=== PATIENT | female | born 1970 | race Caucasian/White ===

== ENCOUNTER 2016-12-28 17:13 | Inpatient (IN) | payer OTHER ==
[~2016-12-28] VITALS: Ht 170.2 cm; Wt 63.5 kg
[2016-12-28 17:36] VITALS: BP 127/87
[2016-12-28] MEDS ORDERED: Morphine Sulfate 4mg/ml Inj IVP ONE (17:45)
[2016-12-28] MEDS ORDERED: Morphine Sulfate 4mg/ml Inj IVP PRN (18:00)
[2016-12-28] MEDS ORDERED: Milk of Magnesia 30ml Ud ORAL PRN (18:00)
[2016-12-28] MEDS ORDERED: Zolpidem 5mg tab ORAL PRN (18:15)
[2016-12-28] MEDS ORDERED: DiphenhydrAMINE 50mg/ml Inj IVP PRN (18:15)
[2016-12-28 18:24] LABS: BASOPHILS % (AUTO) 1.2 % (0.0-2.0); EOSINOPHILS % (AUTO) 2.3 % (0.0-3.0); MEAN CORPUSCULAR HEMOGLOBIN 29.3 PG (27.0-31.0); MEAN CORPUSCULAR HGB CONC 31.8 G/DL (32.0-36.0); MEAN CORPUSCULAR VOLUME 92 FL (80-99); MEAN PLATELET VOLUME 7.1 FL (6.5-10.1); MONOCYTES % (AUTO) 6.7 % (1.0-10.0); NEUTROPHILS % (AUTO) 74.9 % (45.0-75.0); PLATELET COUNT 343 K/UL (150-450); RED BLOOD COUNT 4.88 M/UL (4.20-5.40); RED CELL DISTRIBUTION WIDTH 12.2 % (11.6-14.8); WHITE BLOOD COUNT 15.2 K/UL (4.8-10.8)
[2016-12-28 18:32] LABS: APPEARANCE,URINE SLIGHTLY CLOUDY; KETONES,URINE 2+ (NEGATIVE); LEUKOCYTE ESTERASE ,URINE 3+ (NEGATIVE); NITRITE,URINE NEGATIVE (NEGATIVE); PH,URINE 5 (4.5-8.0); PROTEIN,URINE 2+ (NEGATIVE); UROBILINOGEN,URINE NORMAL MG/DL (0.0-1.0)
[2016-12-28 18:38] LABS: AMORPHOUS SEDIMENT,UR FEW /LPF; BACTERIA,URINE MODERATE /HPF; SQUAMOUS EPITHELIAL CELL,UR FEW /LPF (NONE/OCC)
[2016-12-28] MEDS ORDERED: OMEPRAZOLE20 M2 ORAL (18:42)
[2016-12-28] MEDS ORDERED: cefTRIAXone 1 GM in D5W 55 ML IVPB ONE (18:45)
[2016-12-28 18:46] LABS: ALANINE AMINOTRANSFERASE 19 U/L (3-33); ALBUMIN/GLOBULIN RATIO 1.2 (1.0-2.7); ANION GAP 15 (5-15); ASPARTATE AMINO TRANSFERASE 16 U/L (5-40); CALCIUM 10.5 mg/dL (8.6-10.2); CARBON DIOXIDE 27 mEQ/L (20-30); CHLORIDE 99 mEQ/L (98-107); CREATININE 1.9 mg/dL (0.5-0.9); GLOMERULAR FILTRATION RATE 28.7 mL/min (>60); HEMOLYSIS 0; LIPASE 42 U/L (< 60); POTASSIUM 3.9 mEQ/L (3.4-4.9); SODIUM 141 mEQ/L (135-145); TOTAL PROTEIN 7.8 g/dL (6.6-8.7)
[2016-12-28 18:56] VITALS: BP 125/84
[2016-12-28 20:00] VITALS: BP 133/92
[2016-12-28] MEDS: Docusate 100mg cap ORAL SCH (21:58)
[2016-12-28 22:38] LABS: CREATININE, RANDOM URINE 139.3 mg/dL
--- NOTE | 2016-12-28 23:03 | Emergency Room Report ---
History of Present Illness General Chief Complaint: Back Pain-No Injury Source: Patient Present Illness HPI 46-year-old female presents ED for evaluation. Patient states she's been having right flank pain for the last few days. Pain is sharp, 8/10, radiating towards the front. Denies fevers or chills. Patient states she has history of kidney stone. Patient was referred by Dr. Noble. Patient is status post uterine artery embolization one week ago. Patient is denying any abdominal pain. Denies any nausea or vomiting. Patient has CT done at urgent care yesterday which showed stranding of the right kidney and possible distal ureter stone. No other aggravating or leading factors. Denies any other associated symptom Allergies: Uncoded Allergies: COCONUTS (Allergy, Unknown, 12/28/16) Patient History Past Medical History: GERD Past Surgical History: other - uterine artery embolization Pertinent Family History: none Social History: Denies: smoking, alcohol use, drug use Last Menstrual Period: 12/08/16 Now: No Immunizations: UTD Reviewed Nursing Documentation: PMH: Agreed, PSxH: Agreed Nursing Documentation-PMH Past Medical History: No History, Except For Hx Cardiac Problems: No Hx Cancer: No Hx Gastrointestinal Problems: Yes - GERD Hx Neurological Problems: No Review of Systems All Other Systems: negative except mentioned in HPI Physical Exam Vital Signs Date Time Temp Pulse Resp B/P (MAP) Pulse Ox O2 Delivery O2 Flow Rate FiO2 12/28/16 17:25 97.7 81 14 127/87 99 Room Air Sp02 EP Interpretation: reviewed, normal General Appearance: no apparent distress, alert, GCS 15, non-toxic Head: normocephalic, atraumatic Eyes: bilateral eye normal inspection, bilateral eye PERRL ENT: hearing grossly normal, normal pharynx, no angioedema, normal voice Neck: full range of motion, supple/symm/no masses Respiratory: chest non-tender, lungs clear, normal breath sounds, speaking full sentences Cardiovascular #1: regular rate, rhythm, no edema Cardiovascular #2: 2+ carotid (R), 2+ carotid (L), 2+ radial (R), 2+ radial (L) , 2+ dorsalis pedis (R), 2+ dorsalis pedis (L) Gastrointestinal: normal bowel sounds, non tender, soft, non-distended, no guarding, no rebound Rectal: deferred Genitourinary: normal inspection, CVA tenderness (R) Musculoskeletal: back normal, gait/station normal, normal range of motion, non- tender Neurologic: alert, oriented x3, responsive, motor strength/tone normal, sensory intact, speech normal Psychiatric: judgement/insight normal, memory normal, mood/affect normal, no suicidal/homicidal ideation Reflexes: 3+ bicep (R), 3+ bicep (L), 3+ tricep (R), 3+ tricep (L), 3+ knee (R) , 3+ knee (L) Skin: normal color, no rash, warm/dry, well hydrated Lymphatic: no adenopathy Medical Decision Making Diagnostic Impression: Primary Impression: Kidney stone on right side Additional Impressions: Pyelonephritis ARF (acute renal failure) Qualified Codes: N17.9 - Acute kidney failure, unspecified ER Course Hospital Course 46-year-old F presents to ED with R flank pain Differential diagnosis includes-appendicitis, cholecystitis, kidney stone, pyelonephritis Clinical course Patient placed on stretcher. After initial history and physical I ordered labs , IV fluids, pain medications Labs - marked leukocytosis, Cr 1.9, LFTs normal, UA - gross blood, + bacteria CT scan (yesterday) read shows the distal right ureter stone, stranding around the right kidney Given leukocytosis, perinephric stranding I believe patient should be admitted. Antibiotics given. patient will be admitted to Dr Noble I feel this is a highly complex case requiring extensive working including EKG/ Rhythm strip, Xray/CT/US, Blood/urine lab work, repeat exams while in ED, and administration of strong opiates/narcotics for pain control, admission to hospital or close patient follow up. Diagnosis - kidney stone, pyelonephritis, ARF Admitted to floor in serious condition Labs Test 12/28/16 17:50 12/28/16 22:02 White Blood Count 15.2 K/UL (4.8-10.8) Red Blood Count 4.88 M/UL (4.20-5.40) Hemoglobin 14.3 G/DL (12.0-16.0) Hematocrit 45.0 % (37.0-47.0) Mean Corpuscular Volume 92 FL (80-99) Mean Corpuscular Hemoglobin 29.3 PG (27.0-31.0) Mean Corpuscular Hemoglobin Concent 31.8 G/DL (32.0-36.0) Red Cell Distribution Width 12.2 % (11.6-14.8) Platelet Count 343 K/UL (150-450) Mean Platelet Volume 7.1 FL (6.5-10.1) Neutrophils (%) (Auto) 74.9 % (45.0-75.0) Lymphocytes (%) (Auto) 15.0 % (20.0-45.0) Monocytes (%) (Auto) 6.7 % (1.0-10.0) Eosinophils (%) (Auto) 2.3 % (0.0-3.0) Basophils (%) (Auto) 1.2 % (0.0-2.0) Urine Color Pale yellow Urine Appearance Slightly cloudy Urine pH 5 (4.5-8.0) Urine Specific [place] 1.020 (1.005-1.035) Urine Protein 2+ (NEGATIVE) Urine Glucose (UA) Negative (NEGATIVE) Urine Ketones 2+ (NEGATIVE) Urine Occult Blood 3+ (NEGATIVE) Urine Nitrite Negative (NEGATIVE) Urine Bilirubin Negative (NEGATIVE) Urine Urobilinogen Normal MG/DL (0.0-1.0) Urine Leukocyte Esterase 3+ (NEGATIVE) Urine RBC 5-10 /HPF (0 - 2) Urine WBC 10-15 /HPF (0 - 2) Urine Squamous Epithelial Cells Few /LPF (NONE/OCC) Urine Amorphous Sediment Few /LPF (NONE) Urine Bacteria Moderate /HPF (NONE) Urine HCG, Qualitative Negative Sodium Level 141 mEQ/L (135-145) Potassium Level 3.9 mEQ/L (3.4-4.9) Chloride Level 99 mEQ/L (98-107) Carbon Dioxide Level 27 mEQ/L (20-30) Anion Gap 15 (5-15) Blood Urea Nitrogen 19 mg/dL (7-23) Creatinine 1.9 mg/dL (0.5-0.9) Estimat Glomerular Filtration Rate 28.7 mL/min (>60) Glucose Level 103 mg/dL (74-106) Calcium Level 10.5 mg/dL (8.6-10.2) Total Bilirubin 0.5 mg/dL (0.0-1.2) Aspartate Amino Transf (AST/SGOT) 16 U/L (5-40) Alanine Aminotransferase (ALT/SGPT) 19 U/L (3-33) Alkaline Phosphatase 77 U/L (35-104) Total Creatine Kinase 54 U/L (26-140) Total Protein 7.8 g/dL (6.6-8.7) Albumin 4.3 g/dL (3.5-5.2) Globulin 3.5 g/dL Albumin/Globulin Ratio 1.2 (1.0-2.7) Lipase 42 U/L (< 60) Urine Random Sodium 118 mmol/L Urine Creatinine 139.3 mg/dL Last Vital Signs Date Time Temp Pulse Resp B/P (MAP) Pulse Ox O2 Delivery O2 Flow Rate FiO2 12/28/16 22:28 98.3 12/28/16 20:00 82 18 133/92 Room Air 12/28/16 19:25 99 Status: improved Disposition: ADMITTED INPATIENT Condition: Serious Referrals: Alex Noble MD (PCP) BEN WHELAN M.D. Dec 28, 2016 23:02
[2016-12-29] VITALS: BP 125/82
--- NOTE | 2016-12-29 | Consultation ---
DATE OF CONSULTATION: 12/28/2016 CONSULTING PHYSICIAN: Karthik Barcenas M.D. Chief Complaint/Reason For Hospitalization: I am asked to evaluate a 46-year-old lady with acute kidney injury and right flank pain. History Of Present Illness: The patient has generally been in good health. She is a 46-year-old lady who has had uterine fibroids and had ablation procedure on 12/19/2016. Postoperative, she had some cramping and pains, but was able to be tolerated. However, in the last three days, she has had increasing crampy abdominal pain and increasing low back pain especially in the right low back pain and vomiting frequently. Apparently, she had emesis 11 times in the past 2 days and unable to hold down very much food or liquids. Although, she did have some oral liquids today. She did have a CT scan noncontrast yesterday that showed questionable enlargement of the right upper ureter but it is not clear if there was any stone or true hydronephrosis and a small nonobstructing stone on the left side. Past Medical History: Significant for two episodes of kidney stones, which apparently passed without any intervention and apparently this may have been a calcium stone. Past Surgical History: LASIK surgery for correction of vision and recent uterine ablation. ALLERGIES: None known. Medications: She took Toradol b.i.d. for 5 days postprocedure as well as Augmentin b.i.d. last dose was 2 days ago. She also has had Zofran p.r.n., Motrin 800 mg p.r.n., which she took once a day and I believe 2 pills yesterday and Percocet half a pill p.r.n. Prior to admission, she takes omeprazole 40 mg daily. Habits: She smokes occasionally but not regularly and also occasional alcohol. No drugs. 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 SYSTEM REVIEW: HEAD, EYES, EARS, NOSE, AND THROAT: Vision and hearing are good. ENDOCRINE: No diabetes or thyroid disease. PULMONARY: No asthma, TB, or chronic cough. CARDIAC: No angina, myocardial infarction, or hypertension. Gastrointestinal: Nausea and vomiting as above. There is a history of gastroesophageal reflux disease and reflux. Genitourinary: No dysuria or hematuria. History of uterine fibroids as above. PHYSICAL EXAMINATION: General: The patient is alert, well-developed lady, in no acute distress. Vital Signs: Temperature 97.7, pulse 72, respirations 14, blood pressure 127/87, and O2 saturation 99. Head, Eyes, Ears, Nose, And Throat: Sclerae are nonicteric. Ocular motions intact in all directions. Oral mucosa is slightly dry. NECK: No adenopathy or thyroid enlargement. LUNGS: Clear. HEART: Regular rhythm. I hear no murmur. Abdomen: Soft without organomegaly. No focal tenderness. No distention. EXTREMITIES: No edema, cyanosis, or clubbing. Back: She points to the low back pain on the right and towards the right buttock with area of concern. She is in no acute distress. IMPRESSION: 1. Dehydration secondary to recurrent nausea and vomiting. 2. Acute kidney injury. Also likely secondary to dehydration less likely due to nonsteroidal anti-inflammatory agents of Toradol and Motrin less likely due to any kind of acute kidney injury or obstructive problem. 3. History of prior kidney stones with non-diagnosis CT scan and a nonobstructive left kidney stone and a questionable dilation of the right upper ureter. Plan: The patient to be given vigorous hydration and comfort measures. We will avoid nonsteroidal anti-inflammatory drugs. Recheck her renal function and symptomatic care. We will watch her closely in view of her recent procedure. Karthik Barcenas M.D. DR: FARIBA JOB#: [id number] CC:
[2016-12-29 04:00] VITALS: BP 125/70
[2016-12-29] MEDS: Morphine Sulfate 2mg/ml Inj IVP PRN ×4 (04:08→20:22)
[2016-12-29 05:46] LABS: BASOPHILS % (AUTO) 1.1 % (0.0-2.0); EOSINOPHILS % (AUTO) 2.3 % (0.0-3.0); LYMPHOCYTES % (AUTO) 10.8 % (20.0-45.0); MEAN CORPUSCULAR HEMOGLOBIN 30.4 PG (27.0-31.0); MEAN CORPUSCULAR HGB CONC 32.9 G/DL (32.0-36.0); MEAN CORPUSCULAR VOLUME 92 FL (80-99); MEAN PLATELET VOLUME 7.5 FL (6.5-10.1); MONOCYTES % (AUTO) 8.1 % (1.0-10.0); NEUTROPHILS % (AUTO) 77.7 % (45.0-75.0); PLATELET COUNT 287 K/UL (150-450); RED BLOOD COUNT 3.94 M/UL (4.20-5.40); WHITE BLOOD COUNT 12.4 K/UL (4.8-10.8)
[2016-12-29 07:16] LABS: ALANINE AMINOTRANSFERASE 13 U/L (3-33); ALBUMIN/GLOBULIN RATIO 1.7 (1.0-2.7); ANION GAP 11 (5-15); ASPARTATE AMINO TRANSFERASE 12 U/L (5-40); CALCIUM 8.2 mg/dL (8.6-10.2); CARBON DIOXIDE 24 mEQ/L (20-30); CHLORIDE 104 mEQ/L (98-107); CREATININE 1.5 mg/dL (0.5-0.9); GLOMERULAR FILTRATION RATE 37.7 mL/min (>60); HEMOLYSIS 9; POTASSIUM 4.5 mEQ/L (3.4-4.9); SODIUM 139 mEQ/L (135-145); TOTAL PROTEIN 5.7 g/dL (6.6-8.7)
[2016-12-29 08:00] VITALS: BP 106/71
[2016-12-29] MEDS: Docusate 100mg cap ORAL SCH ×2 (08:42→20:21)
[2016-12-29 12:00] VITALS: BP 114/74
--- NOTE | 2016-12-29 14:21 | Consultation ---
Consult Note Assessment/Plan dict OSCAR RAMSEY Dec 29, 2016 14:21
--- NOTE | 2016-12-29 14:40 | Nephrology Progress Note ---
Assessment/Plan Problem List: (1) Dehydration (2) Hydronephrosis (3) CHERIE (acute kidney injury) (4) Back pain (5) ARF (acute renal failure) (6) Kidney stone on right side Assessment: possible, not confirmed, mild hydro Plan creatinine improving with rehydration, continue, advance diet, strain urine for stones, analgesics Subjective Constitutional: Reports: weakness HEENT: Reports: no symptoms Genitourinary: Reports: flank pain Neurologic/Psychiatric: Reports: no symptoms Subjective nausea better, still some r flank pain Objective Objective Last 24 Hour Vital Signs Date Time Temp Pulse Resp B/P (MAP) Pulse Ox O2 Delivery O2 Flow Rate FiO2 12/29/16 12:00 98.6 72 19 114/74 98 Room Air 12/29/16 08:00 98.8 86 19 106/71 98 Room Air 12/29/16 04:38 97.6 12/29/16 04:00 97.6 73 17 125/70 97 Room Air 12/29/16 00:00 97.6 78 18 125/82 98 Room Air 12/28/16 22:28 98.3 12/28/16 20:00 98.3 82 18 133/92 Room Air 12/28/16 19:25 97.7 69 15 125/84 99 Room Air 12/28/16 19:00 97.7 12/28/16 18:56 97.7 69 15 125/84 99 Room Air 12/28/16 17:36 97.7 72 14 127/87 99 Room Air 12/28/16 17:25 97.7 81 14 127/87 99 Room Air Intake and Output 12/29/16 12/30/16 19:00 07:00 Intake Total 1790 ml Balance 1790 ml Intake Oral 590 ml IV Total 1200 ml # Voids 6 Laboratory Tests 12/28/16 17:50: White Blood Count 15.2H, Red Blood Count 4.88, Hemoglobin 14.3, Hematocrit 45.0 , Mean Corpuscular Volume 92, Mean Corpuscular Hemoglobin 29.3, Mean Corpuscular Hemoglobin Concent 31.8L, Red Cell Distribution Width 12.2, Platelet Count 343, Mean Platelet Volume 7.1, Neutrophils (%) (Auto) 74.9, Lymphocytes (%) (Auto) 15.0L, Monocytes (%) (Auto) 6.7, Eosinophils (%) (Auto) 2.3, Basophils (%) (Auto) 1.2, Urine Color Pale yellow, Urine Appearance Slightly cloudy, Urine pH 5, Urine Specific [place] 1.020, Urine Protein 2+H, Urine Glucose (UA) Negative, Urine Ketones 2+H, Urine Occult Blood 3+H, Urine Nitrite Negative, Urine Bilirubin Negative, Urine Urobilinogen Normal, Urine Leukocyte Esterase 3+H, Urine RBC 5-10H, Urine WBC 10-15H, Urine Squamous Epithelial Cells Few, Urine Amorphous Sediment FewH, Urine Bacteria ModerateH, Urine HCG, Qualitative Negative, Sodium Level 141, Potassium Level 3.9, Chloride Level 99, Carbon Dioxide Level 27, Anion Gap 15, Blood Urea Nitrogen 19 , Creatinine 1.9H, Estimat Glomerular Filtration Rate 28.7, Glucose Level 103, Calcium Level 10.5H, Total Bilirubin 0.5, Aspartate Amino Transf (AST/SGOT) 16, Alanine Aminotransferase (ALT/SGPT) 19, Alkaline Phosphatase 77, Total Creatine Kinase 54, Total Protein 7.8, Albumin 4.3, Globulin 3.5, Albumin/Globulin Ratio 1.2, Lipase 42 12/28/16 22:02: Urine Random Sodium 118, Urine Creatinine 139.3 12/29/16 05:30: White Blood Count 12.4H, Red Blood Count 3.94L, Hemoglobin 12.0, Hematocrit 36.3L, Mean Corpuscular Volume 92, Mean Corpuscular Hemoglobin 30.4, Mean Corpuscular Hemoglobin Concent 32.9, Red Cell Distribution Width 12.0, Platelet Count 287, Mean Platelet Volume 7.5, Neutrophils (%) (Auto) 77.7H, Lymphocytes ( %) (Auto) 10.8L, Monocytes (%) (Auto) 8.1, Eosinophils (%) (Auto) 2.3, Basophils (%) (Auto) 1.1, Sodium Level 139, Potassium Level 4.5, Chloride Level 104, Carbon Dioxide Level 24, Anion Gap 11, Blood Urea Nitrogen 15, Creatinine 1.5H, Estimat Glomerular Filtration Rate 37.7, Glucose Level 106, Calcium Level 8.2#L, Total Bilirubin 0.4, Aspartate Amino Transf (AST/SGOT) 12, Alanine Aminotransferase (ALT/SGPT) 13, Alkaline Phosphatase 56, Total Creatine Kinase 44, Total Protein 5.7L, Albumin 3.6, Globulin 2.1, Albumin/Globulin Ratio 1.7, Phosphorus Level 3.0, Magnesium Level 2.0 Height (Feet): 5 Height (Inches): 7.00 Weight (Pounds): 140 General Appearance: WD/WN, no apparent distress EENT: normal ENT inspection Neck: non-tender, normal alignment, supple Cardiovascular: normal rate Respiratory/Chest: lungs clear Abdomen: non tender, soft, no organomegaly Neurologic: optical dispenser II-XII grossly normal TIMUR TEJADA Dec 29, 2016 14:40
[2016-12-29] MEDS ORDERED: traMADol 50mg tab ORAL PRN (14:45)
[2016-12-29 16:00] VITALS: BP 128/82
--- NOTE | 2016-12-29 16:24 | General Surgery Progress Note ---
General Surgery-Progress Note Subjective Day of Surgery: december 19 Procedure Performed fibroid embolization Chief Complaint: uncontrolled pain Symptoms: improved, tolerating diet, voiding well, passing flatus Objective Last 24 Hour Vital Signs Date Time Temp Pulse Resp B/P (MAP) Pulse Ox O2 Delivery O2 Flow Rate FiO2 12/29/16 16:00 98.9 75 19 128/82 99 Room Air 12/29/16 12:00 98.6 72 19 114/74 98 Room Air 12/29/16 08:00 98.8 86 19 106/71 98 Room Air 12/29/16 04:38 97.6 12/29/16 04:00 97.6 73 17 125/70 97 Room Air 12/29/16 00:00 97.6 78 18 125/82 98 Room Air 12/28/16 22:28 98.3 12/28/16 20:00 98.3 82 18 133/92 Room Air 12/28/16 19:25 97.7 69 15 125/84 99 Room Air 12/28/16 19:00 97.7 12/28/16 18:56 97.7 69 15 125/84 99 Room Air 12/28/16 17:36 97.7 72 14 127/87 99 Room Air 12/28/16 17:25 97.7 81 14 127/87 99 Room Air I&O Intake and Output 12/29/16 12/30/16 19:00 07:00 Intake Total 1790 ml Balance 1790 ml Intake Oral 590 ml IV Total 1200 ml # Voids 6 Dressing: dry Wound: clean Drains: none Cardiovascular: RSR Respiratory: clear Abdomen: soft, flat, scaphoid, non-tender, present bowel sounds Laboratory Tests Test 12/28/16 17:50 12/28/16 22:02 12/29/16 05:30 White Blood Count 15.2 K/UL (4.8-10.8) H 12.4 K/UL (4.8-10.8) H Red Blood Count 4.88 M/UL (4.20-5.40) 3.94 M/UL (4.20-5.40) L Hemoglobin 14.3 G/DL (12.0-16.0) 12.0 G/DL (12.0-16.0) Hematocrit 45.0 % (37.0-47.0) 36.3 % (37.0-47.0) L Mean Corpuscular Volume 92 FL (80-99) 92 FL (80-99) Mean Corpuscular Hemoglobin 29.3 PG (27.0-31.0) 30.4 PG (27.0-31.0) Mean Corpuscular Hemoglobin Concent 31.8 G/DL (32.0-36.0) L 32.9 G/DL (32.0-36.0) Red Cell Distribution Width 12.2 % (11.6-14.8) 12.0 % (11.6-14.8) Platelet Count 343 K/UL (150-450) 287 K/UL (150-450) Mean Platelet Volume 7.1 FL (6.5-10.1) 7.5 FL (6.5-10.1) Neutrophils (%) (Auto) 74.9 % (45.0-75.0) 77.7 % (45.0-75.0) H Lymphocytes (%) (Auto) 15.0 % (20.0-45.0) L 10.8 % (20.0-45.0) L Monocytes (%) (Auto) 6.7 % (1.0-10.0) 8.1 % (1.0-10.0) Eosinophils (%) (Auto) 2.3 % (0.0-3.0) 2.3 % (0.0-3.0) Basophils (%) (Auto) 1.2 % (0.0-2.0) 1.1 % (0.0-2.0) Urine Color Pale yellow Urine Appearance Slightly cloudy Urine pH 5 (4.5-8.0) Urine Specific [place] 1.020 (1.005-1.035) Urine Protein 2+ (NEGATIVE) H Urine Glucose (UA) Negative (NEGATIVE) Urine Ketones 2+ (NEGATIVE) H Urine Occult Blood 3+ (NEGATIVE) H Urine Nitrite Negative (NEGATIVE) Urine Bilirubin Negative (NEGATIVE) Urine Urobilinogen Normal MG/DL (0.0-1.0) Urine Leukocyte Esterase 3+ (NEGATIVE) H Urine RBC 5-10 /HPF (0 - 2) H Urine WBC 10-15 /HPF (0 - 2) H Urine Squamous Epithelial Cells Few /LPF (NONE/OCC) Urine Amorphous Sediment Few /LPF (NONE) H Urine Bacteria Moderate /HPF (NONE) H Urine HCG, Qualitative Negative Sodium Level 141 mEQ/L (135-145) 139 mEQ/L (135-145) Potassium Level 3.9 mEQ/L (3.4-4.9) 4.5 mEQ/L (3.4-4.9) Chloride Level 99 mEQ/L (98-107) 104 mEQ/L (98-107) Carbon Dioxide Level 27 mEQ/L (20-30) 24 mEQ/L (20-30) Anion Gap 15 (5-15) 11 (5-15) Blood Urea Nitrogen 19 mg/dL (7-23) 15 mg/dL (7-23) Creatinine 1.9 mg/dL (0.5-0.9) H 1.5 mg/dL (0.5-0.9) H Estimat Glomerular Filtration Rate 28.7 mL/min (>60) 37.7 mL/min (>60) Glucose Level 103 mg/dL (74-106) 106 mg/dL (74-106) Calcium Level 10.5 mg/dL (8.6-10.2) H 8.2 mg/dL (8.6-10.2) #L Total Bilirubin 0.5 mg/dL (0.0-1.2) 0.4 mg/dL (0.0-1.2) Aspartate Amino Transf (AST/SGOT) 16 U/L (5-40) 12 U/L (5-40) Alanine Aminotransferase (ALT/SGPT) 19 U/L (3-33) 13 U/L (3-33) Alkaline Phosphatase 77 U/L (35-104) 56 U/L (35-104) Total Creatine Kinase 54 U/L (26-140) 44 U/L (26-140) Total Protein 7.8 g/dL (6.6-8.7) 5.7 g/dL (6.6-8.7) L Albumin 4.3 g/dL (3.5-5.2) 3.6 g/dL (3.5-5.2) Globulin 3.5 g/dL 2.1 g/dL Albumin/Globulin Ratio 1.2 (1.0-2.7) 1.7 (1.0-2.7) Lipase 42 U/L (< 60) Urine Random Sodium 118 mmol/L Urine Creatinine 139.3 mg/dL Phosphorus Level 3.0 mg/dL (2.5-4.8) Magnesium Level 2.0 mg/dL (1.7-2.5) Additional Comments labs trending in right direction Plan Additional Comments continue fluids, get renal ultrasound results Alex Noble MD Dec 29, 2016 16:24
[2016-12-29 20:00] VITALS: BP 115/73
[2016-12-29] MEDS: Acetaminophen 500mg (ES) tab ORAL SCH (22:05)
--- NOTE | 2016-12-29 23:45 | Consultation ---
DATE OF CONSULTATION: 12/29/2016 INTERNAL MEDICINE CONSULTATION DATE OF ADMISSION: 12/28/2016. CHIEF COMPLAINT: Right flank pain and emesis. History Of Present Illness: The patient had uterine fibroids ablated with uterine artery embolization on 12/19/2016. Following surgery, she had some cramping and pain and began having vomiting. She vomited many times over the past few days and is unable to hold down liquids. She had pain in the lower abdomen and now in the right flank. She had a noncontrast CT yesterday that showed some small stones, which were nonobstructing. Laboratory studies showed her creatinine was elevated and she was referred to go to the emergency room. She was evaluated and creatinine was elevated further and admission was arranged. Past Medical History: She had two kidney stones in the past many years ago. She has no other major health problems. Denies hypertension, diabetes, or hyperlipidemia. Medications: Recently, she took Augmentin, Toradol, Zofran, Motrin, and omeprazole. ALLERGIES: None to medications, but she is allergic to coconuts. Social History: She smokes and drinks socially. She does not use illicit drugs. REVIEW OF SYSTEMS: Otherwise unremarkable. PHYSICAL EXAMINATION: General: The patient is alert, in no distress. She was ambulating to the bathroom. VITAL SIGNS: Stable. There is no fever. HEENT: The head is normocephalic. NECK: No jugular venous distention. CHEST: Clear. CARDIAC: Rhythm is regular. Abdomen: Soft and nontender. There is no flank tenderness. There is some tenderness in the suprapubic area. EXTREMITIES: No clubbing, cyanosis, or edema. Laboratory And Diagnostic Data: Laboratory studies and imaging are reviewed. IMPRESSIONS: 1. Acute kidney injury due to dehydration. 2. Nausea and vomiting. 3. History of kidney stones. Plan: The patient has improved with hydration and antiemetics. Nephrology consultation has been obtained. I discussed her care with Dr. Noble. Thank you for asking me to see her in consultation. Ricardo Donohue M.D. DR: Radha JOB#: [id number] CC: Ricardo Donohue M.D.; Fax#: [phone] Lang, M.D. ; Fax#: [phone] Noble M.D.; Fax#: [phone]
[2016-12-30] VITALS (7 sets, daily range): BP systolic 94–142; BP diastolic 63–92
[2016-12-30] MEDS: Acetaminophen 500mg (ES) tab ORAL SCH ×2 (06:00→14:00)
[2016-12-30 06:37] LABS: CALCIUM 7.6 mg/dL (8.6-10.2); CREATININE 1.2 mg/dL (0.5-0.9); GLOMERULAR FILTRATION RATE 48.8 mL/min (>60); POTASSIUM 4.3 mEQ/L (3.4-4.9)
[2016-12-30] MEDS: Docusate 100mg cap ORAL SCH ×2 (08:23→20:29)
--- NOTE | 2016-12-30 09:23 | Diagnostic Imaging Report ---
Indication: Right flank pain Technique: Renal ultrasound Comparison: None Findings: Right kidney measures 10.6 cm. Left kidney measures 12.8 cm. Mild to moderate right hydronephrosis is present. No sonographically evident renal calculi can be identified. Bladder is grossly unremarkable. Impression: Mild to moderate right hydronephrosis. Further evaluation recommended as indicated.
--- NOTE | 2016-12-30 10:29 | General Surgery Progress Note ---
General Surgery-Progress Note Subjective Day of Surgery: december 19 Procedure Performed fibroid embolization Chief Complaint: flank pain Symptoms: improved, tolerating diet, voiding well, passing flatus, BM Objective Last 24 Hour Vital Signs Date Time Temp Pulse Resp B/P (MAP) Pulse Ox O2 Delivery O2 Flow Rate FiO2 12/30/16 08:00 98.6 78 16 108/74 98 Room Air 12/30/16 06:59 97.7 12/30/16 04:00 97.7 64 18 108/71 97 Room Air 12/30/16 00:56 65 102/71 12/30/16 00:42 97.9 64 19 94/63 97 Room Air 12/29/16 20:52 98.9 12/29/16 20:00 98.5 72 18 115/73 97 Room Air 12/29/16 16:00 98.9 75 19 128/82 99 Room Air 12/29/16 12:00 98.6 72 19 114/74 98 Room Air I&O Intake and Output 12/30/16 12/31/16 19:00 07:00 Intake Total 900 ml Balance 900 ml Intake Oral 300 ml IV Total 600 ml # Voids 1 Dressing: dry Wound: clean Drains: none Cardiovascular: RSR Respiratory: clear Abdomen: soft, flat, scaphoid, non-tender, present bowel sounds Extremities: no edema, no tenderness, no cyanosis Laboratory Tests Test 12/30/16 05:20 Sodium Level 141 mEQ/L (135-145) Potassium Level 4.3 mEQ/L (3.4-4.9) Chloride Level 106 mEQ/L (98-107) Carbon Dioxide Level 22 mEQ/L (20-30) Anion Gap 13 (5-15) Blood Urea Nitrogen 11 mg/dL (7-23) Creatinine 1.2 mg/dL (0.5-0.9) H Estimat Glomerular Filtration Rate 48.8 mL/min (>60) Glucose Level 89 mg/dL (74-106) Calcium Level 7.6 mg/dL (8.6-10.2) L Imaging renal ultrasound, right hydronephrosis Additional Comments creatinine trending down, cbc pending Plan Additional Comments decrease IV rate, attempt oral pain control. ambulate. Alex Noble MD Dec 30, 2016 10:29
[2016-12-30 12:03] LABS: BASOPHILS % (AUTO) 0.9 % (0.0-2.0); EOSINOPHILS % (AUTO) 2.9 % (0.0-3.0); LYMPHOCYTES % (AUTO) 14.4 % (20.0-45.0); MEAN CORPUSCULAR HEMOGLOBIN 29.4 PG (27.0-31.0); MEAN CORPUSCULAR HGB CONC 32.3 G/DL (32.0-36.0); MEAN CORPUSCULAR VOLUME 91 FL (80-99); MEAN PLATELET VOLUME 7.5 FL (6.5-10.1); MONOCYTES % (AUTO) 7.3 % (1.0-10.0); NEUTROPHILS % (AUTO) 74.5 % (45.0-75.0); PLATELET COUNT 264 K/UL (150-450); RED BLOOD COUNT 3.76 M/UL (4.20-5.40); RED CELL DISTRIBUTION WIDTH 11.9 % (11.6-14.8)
--- NOTE | 2016-12-30 14:00 | Nephrology Progress Note ---
Assessment/Plan Problem List: (1) Dehydration (2) Hydronephrosis (3) CHEIRE (acute kidney injury) (4) Back pain (5) ARF (acute renal failure) (6) Kidney stone on right side Assessment: possible, not confirmed, mild hydro Plan creatinine improving with rehydration, continue, advance diet, strain urine for stones, analgesics Subjective Constitutional: Reports: weakness HEENT: Reports: no symptoms Genitourinary: Reports: flank pain Neurologic/Psychiatric: Reports: no symptoms Subjective nausea better, still some r flank pain Objective Objective Last 24 Hour Vital Signs Date Time Temp Pulse Resp B/P (MAP) Pulse Ox O2 Delivery O2 Flow Rate FiO2 12/30/16 12:00 98.2 69 17 121/81 98 Room Air 12/30/16 08:00 98.6 78 16 108/74 98 Room Air 12/30/16 06:59 97.7 12/30/16 04:00 97.7 64 18 108/71 97 Room Air 12/30/16 00:56 65 102/71 12/30/16 00:42 97.9 64 19 94/63 97 Room Air 12/29/16 20:52 98.9 12/29/16 20:00 98.5 72 18 115/73 97 Room Air 12/29/16 16:00 98.9 75 19 128/82 99 Room Air Intake and Output 12/30/16 12/31/16 19:00 07:00 Intake Total 1060 ml Balance 1060 ml Intake Oral 300 ml IV Total 760 ml # Voids 1 Laboratory Tests 12/30/16 05:20: Sodium Level 141, Potassium Level 4.3, Chloride Level 106, Carbon Dioxide Level 22, Anion Gap 13, Blood Urea Nitrogen 11, Creatinine 1.2H, Estimat Glomerular Filtration Rate 48.8, Glucose Level 89, Calcium Level 7.6L 12/30/16 11:45: White Blood Count 10.0, Red Blood Count 3.76L, Hemoglobin 11.1L, Hematocrit 34.3L, Mean Corpuscular Volume 91, Mean Corpuscular Hemoglobin 29.4, Mean Corpuscular Hemoglobin Concent 32.3, Red Cell Distribution Width 11.9, Platelet Count 264, Mean Platelet Volume 7.5, Neutrophils (%) (Auto) 74.5, Lymphocytes (% ) (Auto) 14.4L, Monocytes (%) (Auto) 7.3, Eosinophils (%) (Auto) 2.9, Basophils (%) (Auto) 0.9 Height (Feet): 5 Height (Inches): 7.00 Weight (Pounds): 140 General Appearance: no apparent distress, alert EENT: normal ENT inspection Neck: normal alignment Cardiovascular: normal rate, regular rhythm Respiratory/Chest: lungs clear Abdomen: non tender, soft, no organomegaly TIMUR TEJADA Dec 30, 2016 14:00
--- NOTE | 2016-12-30 16:10 | Pulmonology Progress Note ---
Assessment/Plan Assessment/Plan 1. Acute kidney injury due to dehydration. 2. Nausea and vomiting. 3. History of kidney stones. 4. mild to moderate hydro on nicholas 5. recent fibroid embolization continue IVF fu with CT report ? repeat ua urology to see may need cysto pain meds, start norco antiemitics Subjective Constitutional: Reports: no symptoms HEENT: Repors: no symptoms Respiratory: Reports: no symptoms Cardiovascular: Reports: no symptoms Gastrointestinal/Abdominal: Reports: no symptoms Genitourinary: Reports: vaginal bleed/discharge Neurologic: Reports: no symptoms Skin: Reports: no symptoms Endocrine: Reports: no symptoms Allergies: Uncoded Allergies: COCONUTS (Allergy, Unknown, 12/28/16) Subjective still complains of rigth flank pain nausea no vomiting on IVF no fever no dizziness nicholas compelted with mild moderate hydro per pt she had a ct but no report in the computer sp uterine embolization last week uA positive, but given abx 1 dose no further abx at this time wbc reduced pain not controled with tramadol Objective Last 24 Hour Vital Signs Date Time Temp Pulse Resp B/P (MAP) Pulse Ox O2 Delivery O2 Flow Rate FiO2 12/30/16 13:42 98.6 12/30/16 12:00 98.2 69 17 121/81 98 Room Air 12/30/16 08:00 98.6 78 16 108/74 98 Room Air 12/30/16 06:59 97.7 12/30/16 04:00 97.7 64 18 108/71 97 Room Air 12/30/16 00:56 65 102/71 12/30/16 00:42 97.9 64 19 94/63 97 Room Air 12/29/16 20:52 98.9 12/29/16 20:00 98.5 72 18 115/73 97 Room Air Intake and Output 12/30/16 12/31/16 19:00 07:00 Intake Total 1440 ml Balance 1440 ml Intake Oral 600 ml IV Total 840 ml # Voids 2 General Appearance: WD/WN Respiratory/Chest: normal breath sounds, no respiratory distress Cardiovascular: normal rate, regular rhythm Abdomen: distended, tender, other - positive flank pain Extremities: no cyanosis, no clubbing Neurologic/Psychiatric: oriented x 3, responsive Lymphatic: no neck adenopathy Microbiology Date/Time Source Procedure Growth Status 12/28/16 17:50 Urine,Clean Catch Urine Culture - Preliminary YEAST Resulted Laboratory Tests 12/30/16 05:20: Sodium Level 141, Potassium Level 4.3, Chloride Level 106, Carbon Dioxide Level 22, Anion Gap 13, Blood Urea Nitrogen 11, Creatinine 1.2H, Estimat Glomerular Filtration Rate 48.8, Glucose Level 89, Calcium Level 7.6L 12/30/16 11:45: White Blood Count 10.0, Red Blood Count 3.76L, Hemoglobin 11.1L, Hematocrit 34.3L, Mean Corpuscular Volume 91, Mean Corpuscular Hemoglobin 29.4, Mean Corpuscular Hemoglobin Concent 32.3, Red Cell Distribution Width 11.9, Platelet Count 264, Mean Platelet Volume 7.5, Neutrophils (%) (Auto) 74.5, Lymphocytes (% ) (Auto) 14.4L, Monocytes (%) (Auto) 7.3, Eosinophils (%) (Auto) 2.9, Basophils (%) (Auto) 0.9 Current Medications Medications (Trade) Dose Ordered Sig/Joanna Route PRN Reason Start Time Stop Time Status Last Admin Dose Admin Acetaminophen (Tylenol) 650 mg Q4H PRN ORAL fever 12/28/16 18:00 01/27/17 17:59 Acetaminophen (Tylenol) 1,000 mg Q8HR ORAL 12/29/16 22:00 01/28/17 21:59 12/30/16 06:00 Dextrose (Dextrose 50%) STAT PRN IV Hypoglycemia 12/28/16 18:00 01/27/17 17:59 Diphenhydramine HCl (Benadryl) 50 mg Q6H PRN IVP Itching 12/28/16 18:15 01/27/17 18:14 Docusate Sodium (Colace) 100 mg EVERY 12 HOURS ORAL 12/28/16 21:00 01/27/17 20:59 12/30/16 08:23 Magnesium Hydroxide (Mom) 30 ml HSPRN PRN ORAL Constipation 12/28/16 18:00 01/27/17 17:59 Morphine Sulfate (Morphine Sulfate) 2 mg Q2H PRN IVP Moderate Pain (Pain Scale 4-6) 12/28/16 18:00 01/04/17 17:59 12/29/16 20:22 Morphine Sulfate (Morphine Sulfate) 4 mg Q2H PRN IVP Severe Pain (Pain Scale 7-10) 12/28/16 18:00 01/04/17 17:59 12/28/16 21:58 Ondansetron HCl (Zofran) 4 mg Q6H PRN IVP Nausea & Vomiting 12/28/16 18:00 01/27/17 17:59 12/29/16 03:46 Pantoprazole (Protonix) 40 mg DAILY ORAL 12/28/16 18:00 01/27/17 17:59 12/30/16 08:23 Sodium Chloride 1,000 ml @ 80 mls/hr [id number] IVLG 12/30/16 11:00 01/29/17 10:59 12/30/16 11:07 Tramadol HCl (Ultram) 50 mg Q4HR PRN ORAL For Pain 12/29/16 14:45 01/05/17 14:44 12/30/16 12:43 Zolpidem Tartrate (Ambien) 5 mg BEDTIME PRN ORAL Restlessness 12/28/16 18:15 01/04/17 18:14 MARTÍN PICKETT DO Dec 30, 2016 16:10
[2016-12-30] MEDS ORDERED: Norco 10mg/325mg tab ORAL PRN (16:15)
[2016-12-30] MEDS ORDERED: Norco 7.5mg/325mg tab ORAL PRN (16:15)
[2016-12-30] MEDS ORDERED: Norco 5mg/325mg tab ORAL PRN (16:15)
[2016-12-30 20:01] LABS: APPEARANCE,URINE CLEAR; KETONES,URINE 2+ (NEGATIVE); LEUKOCYTE ESTERASE ,URINE NEGATIVE (NEGATIVE); NITRITE,URINE NEGATIVE (NEGATIVE); PH,URINE 7 (4.5-8.0); PROTEIN,URINE NEGATIVE (NEGATIVE); UROBILINOGEN,URINE NORMAL MG/DL (0.0-1.0)
[2016-12-30 20:18] LABS: BACTERIA,URINE FEW /HPF; SQUAMOUS EPITHELIAL CELL,UR FEW /LPF (NONE/OCC); WBC,URINE 0-2 /HPF (0 - 2)
[2016-12-30] MEDS ORDERED: Tamsulosin 0.4mg cap ORAL SCH (21:00)
[2016-12-31 00:45] VITALS: BP 112/71
[2016-12-31 04:46] VITALS: BP 117/80
[2016-12-31] MEDS: Docusate 100mg cap ORAL SCH (07:32)
[2016-12-31 08:01] LABS: BASOPHILS % (AUTO) 0.8 % (0.0-2.0); EOSINOPHILS % (AUTO) 3.2 % (0.0-3.0); LYMPHOCYTES % (AUTO) 19.9 % (20.0-45.0); MEAN CORPUSCULAR HEMOGLOBIN 30.3 PG (27.0-31.0); MEAN CORPUSCULAR HGB CONC 33.2 G/DL (32.0-36.0); MEAN CORPUSCULAR VOLUME 91 FL (80-99); MEAN PLATELET VOLUME 7.4 FL (6.5-10.1); MONOCYTES % (AUTO) 6.6 % (1.0-10.0); NEUTROPHILS % (AUTO) 69.4 % (45.0-75.0); PLATELET COUNT 260 K/UL (150-450); RED BLOOD COUNT 3.54 M/UL (4.20-5.40); RED CELL DISTRIBUTION WIDTH 11.6 % (11.6-14.8)
[2016-12-31 08:05] LABS: CALCIUM 8.3 mg/dL (8.6-10.2); CREATININE 1.2 mg/dL (0.5-0.9); GLOMERULAR FILTRATION RATE 48.8 mL/min (>60); POTASSIUM 3.9 mEQ/L (3.4-4.9)
--- NOTE | 2016-12-31 09:40 | Urology Progress Note ---
Assessment/Plan Assessment/Plan 1. Right flank pain, improved. 2. Right hydronephrosis. 3. History of nephrolithiasis. 4. Pyuria and probable colonized urine. 5. Hematuria. 6. Proteinuria. 7. Occasional urinary frequency. 8. CHERIE, improved. d/w pt fully d/w Dr. Barcenas options of surveillance vs retrograde pyelogram? pros and cons discussed pt does not want intervention now can monitor with serial imaging Subjective Allergies: Uncoded Allergies: COCONUTS (Allergy, Unknown, 12/28/16) Subjective all noted, less pain Objective Last 24 Hour Vital Signs Date Time Temp Pulse Resp B/P (MAP) Pulse Ox O2 Delivery O2 Flow Rate FiO2 12/31/16 05:20 98.0 12/31/16 04:46 98.0 70 20 117/80 98 Room Air 12/31/16 00:45 98.2 70 18 112/71 97 Room Air 12/30/16 20:08 98.2 63 19 142/92 98 Room Air 12/30/16 16:00 97.5 60 17 134/79 97 Room Air 12/30/16 13:42 98.6 12/30/16 12:00 98.2 69 17 121/81 98 Room Air Intake and Output 12/31/16 01/01/17 19:00 07:00 Intake Total 80 ml Balance 80 ml IV Total 80 ml Microbiology Date/Time Source Procedure Growth Status 12/28/16 17:50 Urine,Clean Catch Urine Culture - Final Corazon Tropicalis Complete Current Medications Medications (Trade) Dose Ordered Sig/Joanna Route PRN Reason Start Time Stop Time Status Last Admin Dose Admin Acetaminophen (Tylenol) 650 mg Q4H PRN ORAL Mild Pain (Pain Scale 1-3) 12/30/16 22:00 01/29/17 21:59 12/31/16 09:25 Acetaminophen/ Hydrocodone Bitart (Broadbent 10/325) 1 ea Q4H PRN ORAL Severe Pain (Pain Scale 7-10) 12/30/16 16:15 01/06/17 16:14 Acetaminophen/ Hydrocodone Bitart (Broadbent 5/325) 1 tab Q4H PRN ORAL Mild Pain (Pain Scale 1-3) 12/30/16 16:15 01/06/17 16:14 Acetaminophen/ Hydrocodone Bitart (Broadbent 7.5/325) 1 ea Q4H PRN ORAL Moderate Pain (Pain Scale 4-6) 12/30/16 16:15 01/06/17 16:14 Dextrose (Dextrose 50%) STAT PRN IV Hypoglycemia 12/28/16 18:00 01/27/17 17:59 Diphenhydramine HCl (Benadryl) 50 mg Q6H PRN IVP Itching 12/28/16 18:15 01/27/17 18:14 Docusate Sodium (Colace) 100 mg EVERY 12 HOURS ORAL 12/28/16 21:00 01/27/17 20:59 12/30/16 08:23 Magnesium Hydroxide (Mom) 30 ml HSPRN PRN ORAL Constipation 12/28/16 18:00 01/27/17 17:59 Morphine Sulfate (Morphine Sulfate) 2 mg Q2H PRN IVP Moderate Pain (Pain Scale 4-6) 12/28/16 18:00 01/04/17 17:59 12/29/16 20:22 Morphine Sulfate (Morphine Sulfate) 4 mg Q2H PRN IVP Severe Pain (Pain Scale 7-10) 12/28/16 18:00 01/04/17 17:59 12/28/16 21:58 Ondansetron HCl (Zofran) 4 mg Q6H PRN IVP Nausea & Vomiting 12/28/16 18:00 01/27/17 17:59 12/29/16 03:46 Pantoprazole (Protonix) 40 mg DAILY ORAL 12/28/16 18:00 01/27/17 17:59 12/31/16 09:25 Sodium Chloride 1,000 ml @ 80 mls/hr [id number] IVLG 12/30/16 11:00 01/29/17 10:59 12/30/16 23:52 Tamsulosin HCl (Flomax) 0.4 mg BEDTIME ORAL 12/30/16 21:00 01/29/17 20:59 12/30/16 20:27 Zolpidem Tartrate (Ambien) 5 mg BEDTIME PRN ORAL Restlessness 12/28/16 18:15 01/04/17 18:14 Laboratory Tests 12/30/16 11:45: White Blood Count 10.0, Red Blood Count 3.76L, Hemoglobin 11.1L, Hematocrit 34.3L, Mean Corpuscular Volume 91, Mean Corpuscular Hemoglobin 29.4, Mean Corpuscular Hemoglobin Concent 32.3, Red Cell Distribution Width 11.9, Platelet Count 264, Mean Platelet Volume 7.5, Neutrophils (%) (Auto) 74.5, Lymphocytes (% ) (Auto) 14.4L, Monocytes (%) (Auto) 7.3, Eosinophils (%) (Auto) 2.9, Basophils (%) (Auto) 0.9 12/30/16 18:53: Urine Color Pale yellow, Urine Appearance Clear, Urine pH 7, Urine Specific [place] 1.005, Urine Protein Negative, Urine Glucose (UA) Negative, Urine Ketones 2+H, Urine Occult Blood 1+H, Urine Nitrite Negative, Urine Bilirubin Negative, Urine Urobilinogen Normal, Urine Leukocyte Esterase Negative, Urine RBC 2-4H, Urine WBC 0-2, Urine Squamous Epithelial Cells Few, Urine Bacteria Few 12/31/16 05:10: White Blood Count 10.0, Red Blood Count 3.54L, Hemoglobin 10.7L, Hematocrit 32.4L, Mean Corpuscular Volume 91, Mean Corpuscular Hemoglobin 30.3, Mean Corpuscular Hemoglobin Concent 33.2, Red Cell Distribution Width 11.6, Platelet Count 260, Mean Platelet Volume 7.4, Neutrophils (%) (Auto) 69.4, Lymphocytes (% ) (Auto) 19.9L, Monocytes (%) (Auto) 6.6, Eosinophils (%) (Auto) 3.2H, Basophils (%) (Auto) 0.8, Sodium Level 141, Potassium Level 3.9, Chloride Level 104, Carbon Dioxide Level 23, Anion Gap 14, Blood Urea Nitrogen 7, Creatinine 1.2H, Estimat Glomerular Filtration Rate 48.8, Glucose Level 89, Calcium Level 8.3L Height (Feet): 5 Height (Inches): 7.00 Weight (Pounds): 140 Objective exam stable DARRIUS GUZMAN Dec 31, 2016 09:40
[2016-12-31] MEDS ORDERED: D5 1/2NS 1000ml IV ONE (09:50)
--- NOTE | 2016-12-31 10:53 | Nephrology Progress Note ---
Assessment/Plan Problem List: (1) Dehydration (2) Hydronephrosis (3) CHERIE (acute kidney injury) (4) Back pain (5) ARF (acute renal failure) (6) Kidney stone on right side Assessment: possible, not confirmed, mild hydro Plan creatinine improving with rehydration, continue, advance diet, strain urine for stones, analgesics, discussed outpatient eval post dc Subjective Constitutional: Reports: no symptoms Genitourinary: Reports: flank pain Subjective nausea better, much less r flank pain Objective Objective Last 24 Hour Vital Signs Date Time Temp Pulse Resp B/P (MAP) Pulse Ox O2 Delivery O2 Flow Rate FiO2 12/31/16 10:24 98.0 12/31/16 04:46 98.0 70 20 117/80 98 Room Air 12/31/16 00:45 98.2 70 18 112/71 97 Room Air 12/30/16 20:08 98.2 63 19 142/92 98 Room Air 12/30/16 16:00 97.5 60 17 134/79 97 Room Air 12/30/16 13:42 98.6 12/30/16 12:00 98.2 69 17 121/81 98 Room Air Intake and Output 12/31/16 01/01/17 19:00 07:00 Intake Total 80 ml Balance 80 ml IV Total 80 ml Laboratory Tests 12/30/16 11:45: White Blood Count 10.0, Red Blood Count 3.76L, Hemoglobin 11.1L, Hematocrit 34.3L, Mean Corpuscular Volume 91, Mean Corpuscular Hemoglobin 29.4, Mean Corpuscular Hemoglobin Concent 32.3, Red Cell Distribution Width 11.9, Platelet Count 264, Mean Platelet Volume 7.5, Neutrophils (%) (Auto) 74.5, Lymphocytes (% ) (Auto) 14.4L, Monocytes (%) (Auto) 7.3, Eosinophils (%) (Auto) 2.9, Basophils (%) (Auto) 0.9 12/30/16 18:53: Urine Color Pale yellow, Urine Appearance Clear, Urine pH 7, Urine Specific [place] 1.005, Urine Protein Negative, Urine Glucose (UA) Negative, Urine Ketones 2+H, Urine Occult Blood 1+H, Urine Nitrite Negative, Urine Bilirubin Negative, Urine Urobilinogen Normal, Urine Leukocyte Esterase Negative, Urine RBC 2-4H, Urine WBC 0-2, Urine Squamous Epithelial Cells Few, Urine Bacteria Few 12/31/16 05:10: White Blood Count 10.0, Red Blood Count 3.54L, Hemoglobin 10.7L, Hematocrit 32.4L, Mean Corpuscular Volume 91, Mean Corpuscular Hemoglobin 30.3, Mean Corpuscular Hemoglobin Concent 33.2, Red Cell Distribution Width 11.6, Platelet Count 260, Mean Platelet Volume 7.4, Neutrophils (%) (Auto) 69.4, Lymphocytes (% ) (Auto) 19.9L, Monocytes (%) (Auto) 6.6, Eosinophils (%) (Auto) 3.2H, Basophils (%) (Auto) 0.8, Sodium Level 141, Potassium Level 3.9, Chloride Level 104, Carbon Dioxide Level 23, Anion Gap 14, Blood Urea Nitrogen 7, Creatinine 1.2H, Estimat Glomerular Filtration Rate 48.8, Glucose Level 89, Calcium Level 8.3L Height (Feet): 5 Height (Inches): 7.00 Weight (Pounds): 140 General Appearance: no apparent distress, alert EENT: normal ENT inspection Neck: normal alignment Cardiovascular: normal rate, regular rhythm Respiratory/Chest: lungs clear, normal breath sounds Abdomen: soft, no organomegaly Neurologic: volunteer specialist II-XII grossly normal TIMUR TEJADA Dec 31, 2016 10:53
--- NOTE | 2016-12-31 11:42 | General Surgery Progress Note ---
General Surgery-Progress Note Subjective Day of Surgery: december 19 Procedure Performed fibroid embolization Symptoms: improved, tolerating diet, BM Objective Last 24 Hour Vital Signs Date Time Temp Pulse Resp B/P (MAP) Pulse Ox O2 Delivery O2 Flow Rate FiO2 12/31/16 10:24 98.0 12/31/16 04:46 98.0 70 20 117/80 98 Room Air 12/31/16 00:45 98.2 70 18 112/71 97 Room Air 12/30/16 20:08 98.2 63 19 142/92 98 Room Air 12/30/16 16:00 97.5 60 17 134/79 97 Room Air 12/30/16 13:42 98.6 12/30/16 12:00 98.2 69 17 121/81 98 Room Air I&O Intake and Output 12/31/16 01/01/17 19:00 07:00 Intake Total 80 ml Balance 80 ml IV Total 80 ml Dressing: dry Wound: clean Drains: none Cardiovascular: RSR Respiratory: clear Abdomen: soft, flat, scaphoid, non-tender, present bowel sounds Extremities: no edema, no tenderness, no cyanosis Laboratory Tests Test 12/30/16 11:45 12/30/16 18:53 12/31/16 05:10 White Blood Count 10.0 K/UL (4.8-10.8) 10.0 K/UL (4.8-10.8) Red Blood Count 3.76 M/UL (4.20-5.40) L 3.54 M/UL (4.20-5.40) L Hemoglobin 11.1 G/DL (12.0-16.0) L 10.7 G/DL (12.0-16.0) L Hematocrit 34.3 % (37.0-47.0) L 32.4 % (37.0-47.0) L Mean Corpuscular Volume 91 FL (80-99) 91 FL (80-99) Mean Corpuscular Hemoglobin 29.4 PG (27.0-31.0) 30.3 PG (27.0-31.0) Mean Corpuscular Hemoglobin Concent 32.3 G/DL (32.0-36.0) 33.2 G/DL (32.0-36.0) Red Cell Distribution Width 11.9 % (11.6-14.8) 11.6 % (11.6-14.8) Platelet Count 264 K/UL (150-450) 260 K/UL (150-450) Mean Platelet Volume 7.5 FL (6.5-10.1) 7.4 FL (6.5-10.1) Neutrophils (%) (Auto) 74.5 % (45.0-75.0) 69.4 % (45.0-75.0) Lymphocytes (%) (Auto) 14.4 % (20.0-45.0) L 19.9 % (20.0-45.0) L Monocytes (%) (Auto) 7.3 % (1.0-10.0) 6.6 % (1.0-10.0) Eosinophils (%) (Auto) 2.9 % (0.0-3.0) 3.2 % (0.0-3.0) H Basophils (%) (Auto) 0.9 % (0.0-2.0) 0.8 % (0.0-2.0) Urine Color Pale yellow Urine Appearance Clear Urine pH 7 (4.5-8.0) Urine Specific [place] 1.005 (1.005-1.035) Urine Protein Negative (NEGATIVE) Urine Glucose (UA) Negative (NEGATIVE) Urine Ketones 2+ (NEGATIVE) H Urine Occult Blood 1+ (NEGATIVE) H Urine Nitrite Negative (NEGATIVE) Urine Bilirubin Negative (NEGATIVE) Urine Urobilinogen Normal MG/DL (0.0-1.0) Urine Leukocyte Esterase Negative (NEGATIVE) Urine RBC 2-4 /HPF (0 - 2) H Urine WBC 0-2 /HPF (0 - 2) Urine Squamous Epithelial Cells Few /LPF (NONE/OCC) Urine Bacteria Few /HPF (NONE) Sodium Level 141 mEQ/L (135-145) Potassium Level 3.9 mEQ/L (3.4-4.9) Chloride Level 104 mEQ/L (98-107) Carbon Dioxide Level 23 mEQ/L (20-30) Anion Gap 14 (5-15) Blood Urea Nitrogen 7 mg/dL (7-23) Creatinine 1.2 mg/dL (0.5-0.9) H Estimat Glomerular Filtration Rate 48.8 mL/min (>60) Glucose Level 89 mg/dL (74-106) Calcium Level 8.3 mg/dL (8.6-10.2) L Plan Additional Comments likely separate event, passing renal calculus, will need follow up monitoring of labs, and straining urine. s/w extension service specialist, dr stock. Alex Noble MD Dec 31, 2016 11:42
--- NOTE | 2016-12-31 11:45 | Consultation ---
DATE OF CONSULTATION: 12/30/2016 CONSULTING PHYSICIAN: Geovanny Webb M.D. REFERRING PHYSICIAN: Helga Sam D.O. REASON FOR THE CONSULTATION: For evaluation of hydronephrosis. History Of Present Illness: This is a pleasant 46-year-old female. She has a history of uterine fibroids for which she had uterine embolization about 12 days ago. Recently, she had developed flank pain and was admitted to the emergency room. She was seen at an urgent care facility prior. She has a history of kidney stones, which she has passed before. PAST MEDICAL HISTORY: As above. PAST SURGICAL HISTORY: As above. Current Medications: She is on [place], Colace, Ambien, Benadryl, and Protonix. ALLERGIES: No known drug allergies. SOCIAL HISTORY: She is currently a nonsmoker. FAMILY HISTORY: Noncontributory REVIEW OF SYSTEMS: As above. PHYSICAL EXAMINATION: General: A well-developed and well-nourished female, in no acute distress. Vital Signs: Temperature is 97.5 degrees, blood pressure 134/79, pulse 60, and respirations 17. HEENT: Atraumatic and normocephalic. NECK: Supple. BACK: There is minimal CVA tenderness. ABDOMEN: Soft. Laboratory Data: Her UA showed 5 to 10 rbcs, 10 to 15 wbcs, moderate bacteria, and 2+ protein. White count 10.0, hemoglobin 11.1, and platelets are 264,000. Her BUN is 11 and creatinine is 1.2. She did have a creatinine of 1.9 on admission. Her urine culture has grown 60,000 to 70,000 colonies of yeast. Diagnostic Imaging Studies: The patient had a renal ultrasound yesterday and there was mention of [id number] right hydronephrosis. The patient did have a CT scan at an outside facility. This was from 12/27/2016. She did have a copy of the report and I did look at the report and there was mention of some prominence of the right proximal ureter and right renal collecting system. However, it was difficult to ascertain if there was any distal stones in the ureter because of large uterine fibroid and extensive phleboliths. There was also mention of a small amount of obstructing 3 mm stone of the left kidney. IMPRESSION: 1. Right flank pain. 2. Right hydronephrosis. 3. History of nephrolithiasis. 4. Pyuria and probable colonized urine. 5. Hematuria. 6. Proteinuria. 7. Occasional urinary frequency. Plan And Discussion: The patient does have right flank pain and hydronephrosis. The hydronephrosis may be secondary to renal colic and she may possibly passing a small stone in the ureter. Unfortunately, it is hard to ascertain this on the recent CT because of her large fibroid and phleboliths. She did have mild acute kidney injury, which has improved. At this time, I will put her empirically on Flomax, which may help pass the stone and we will strain her urine. She will be monitored clinically. If she continues to have pain, we can consider obtaining a repeat CT with intravenous contrast or doing a retrograde study. I will follow the patient. Any other recommendations will be forthcoming. Thank you for this consultation. Geovanny Webb M.D. DR: Mona JOB#: [id number] CC: Alex Noble M.D.; Fax#: [phone] Lang, M.D. ; Fax#: [phone] Donohue M.D.; Fax#: [phone]
[2017-01-02] MEDS ORDERED: TAMSULOSIN HCL0.4 MG ORAL (09:35)
--- NOTE | 2017-01-02 09:41 | Discharge Summary ---
Discharge Summary Hospital Course Date of Admission Dec 28, 2016 at 17:55 Date of Discharge Dec 31, 2016 at 12:16 Admitting Diagnosis POST OP PAIN HPI Marcella Snow is a 46 year old female who was admitted on Dec 28, 2016 at 17 :55 for Post Op Pain Hospital Course dc summary #[id number] Discharge Medications New Medications: Tamsulosin Hcl (Tamsulosin Hcl*) 0.4 Mg Cap.er.24h 0.4 MG ORAL BEDTIME, #30 CAP Continued Medications: Omeprazole (Omeprazole) 20 Mg Capsule.dr 20 MG ORAL DAILY, CAP Discharge Condition Upon Discharge: stable Discharge Disposition Patient was discharged to Home (01) Discharge Diagnoses: Discharge Instructions Discharge Instructions Special Instructions I have been assigned to complete a D/C Summary on this account. I was not involved in the patient management Sofia Bates NP (Vanchtein) Jan 02, 2017 09:41
--- NOTE | 2017-01-03 03:15 | Discharge Summary 2 SIG ---
DATE OF ADMISSION: 12/28/2016 DATE OF DISCHARGE: 12/31/2016 CONSULTANTS: 1. Ricardo Donohue M.D. 2. Karthik Barcenas M.D. 3. Geovanny Webb M.D. BRIEF HOSPITAL COURSE: 46 years old female with a history of recent uterine artery embolization, secondary to fibroids on 12/19/2016, presented to the emergency room for evaluation. The patient reported having right flank pain for the last few days. The pain was described as sharp, 8/10, and radiating towards the front. The patient denied fever and chills. The patient denied abdominal pain, nausea, or vomiting. CT of the abdomen was done day prior to presentation to the emergency department at urgent care. It revealed straining of the right kidney and possible distal ureteral stone. The patient reported history of kidney stones in the past. Workup in the emergency room revealed stable vital signs. Laboratory work revealed a urinalysis with pyuria, moderate bacteria, +3 occult blood, +2 protein, and +2 ketones. WBC -16.2. Creatinine - 1.9. Nephrology, General Medicine, and Urology consults were requested. The patient undergone renal ultrasound, which revealed mild to moderate right hydronephrosis. The patient was on generous IV hydration. Creatinine was improving with rehydration. Creatinine prior to discharge down to 1.2 from initial 1.9. Diet was advanced as tolerated. Antiemetic provided as needed. Pain management provided. All urine was strained. Urine culture grew Corazon. Urologist seen and evaluated the patient and stated that urine had pyuria but was likely colonized. Per Urology, hydronephrosis may be secondary to renal colic and the patient was may be possibly passing a small stone in the ureter. Urologist placed the patient empirically on Flomax, which may help to pass the stone. Urine will be continued to strain as an outpatient. The patient will be followed up with the urologist as outpatient. The patient symptomatically improved, pain resolved, tolerated diet. Patient was stable for discharge. FINAL DIAGNOSES: 1. Dehydration, secondary to recurrent nausea and vomiting, resolved. 2. Acute kidney injury, secondary to dehydration, resolved. 3. Status post recent fibroid embolization on 12/19/2016. 4. History of nephrolithiasis. 5. Right hydronephrosis. 6. Right flank pain. 7. Proteinuria with hematuria. DISCHARGE MEDICATIONS: See medication reconciliation list. DISCHARGE INSTRUCTIONS: The patient was discharged home. Follow up with the primary medical doctor. Follow up with the urologist as outpatient. Alex Dexter M.D. I have been assigned to dictate discharge summary on this account and I was not involved in the patient's management. Sofia Mengnegro N.PEloisa DR: KADEN JOB#: [id number] CC: CARISSA
== END 2016-12-31 12:16 | disposition home or self-care (01) | DRG 684 ==
LOC: EMR 17:45 → 3E 17:55 → EDBEDREQ 18:09 → 3E 19:09
DX: N17.9 Acute kidney failure, unspecified (principal); N20.0 Calculus of kidney; E86.0 Dehydration; R11.2 Nausea with vomiting, unspecified; N13.30 Unspecified hydronephrosis; R10.9 Unspecified abdominal pain; Z98.890 Other specified postprocedural states
CPT/HCPCS: 36415; 76775; 80048; 80053; 81003; 81025; 82550; 82570; 83690; 83735; 84100; 84300; 85025; 87086; 99285; J2405